=== PATIENT | male | born 1975 | race American Indian/Alaskan Native ===

== ENCOUNTER 2021-03-05 02:48 | Emergency (ER) | payer MEDICAID ==
[2021-03-05 03:35] LABS: Basophils # (Auto) 0.1 K/mm3 (0.0-0.1); Basophils % (Auto) 1.2 % (0.0-1.8); Eosinophils # (Auto) 0.1 K/mm3 (0.0-0.4); Eosinophils % (Auto) 1.4 % (0.0-4.3); Hematocrit 41.4 % (35.5-45.6); Hemoglobin 14.6 gm/dl (11.8-15.2); Lymphocytes # (Auto) 3.4 K/mm3 (1.2-5.4); Lymphocytes % (Auto) 31.3 % (13.4-35.0); Mean Corpuscular HGB Conc 35 % (32-34); Mean Corpuscular Volume 91 fl (84-94); Monocytes # (Auto) 0.8 K/mm3 (0.0-0.8); Monocytes % (Auto) 7.1 % (0.0-7.3); Platelet Count 312 K/mm3 (140-440); Red Blood Count 4.54 M/mm3 (3.65-5.03); Red Cell Distribution Width 14.4 % (13.2-15.2)
--- NOTE | 2021-03-05 03:48 | XRay Report ---
CHEST 1 VIEW 0333 INDICATION / CLINICAL INFORMATION: near syncope COMPARISON: None available. FINDINGS: SUPPORT DEVICES: None HEART / MEDIASTINUM: No significant abnormality. LUNGS / PLEURA: No significant pulmonary or pleural abnormality. No pneumothorax. ADDITIONAL FINDINGS: No significant additional findings. IMPRESSION: No significant acute abnormality Signer Name: Stiven Sood MD Signed: 03/05/2021 3:43 AM Workstation Name: [id number]
[2021-03-05 04:02] LABS: Alanine Aminotransferase 14 units/L (7-56); Albumin 4.4 g/dL (3.9-5); BUN/Creatinine Ratio 15; Blood Urea Nitrogen 15 mg/dL (9-20); Calcium 9.5 mg/dL (8.4-10.2); Hemolysis Index 28
--- NOTE | 2021-03-05 04:56 | Event Note ---
ED Screening Note Date of service: 03/05/21 Time: 04:35 ED Screening Note: Patient is a 45 yo AA male with a h/o HTN, NIDDM, chronic low back pain and chronic heavy tobacco abuse who presented to the ED with c/o acute onset persistent left-sided chest wall, dyspnea, low back pain, tingling and numbnesss of lower extremities bilaterally for the last 2 weeks, worse in the last 2 days. Patient states that chest pain and shortness of breath are worse with any movement making his symptoms worse. Patient denies fall, traumatic injury, fever, chills, abdominal pain, hematuria, heavy lifting, sore throat, headache, syncope, dizziness or seizures. This initial assessment/diagnostic orders/clinical plan/treatment(s) is/are subject to change based on patients health status, clinical progression and re- assessment by fellow clinical providers in the ED. Further treatment and workup at subsequent clinical providers discretion. Patient/guardian urged not to elope from the ED as their condition may be serious if not clinically assessed and managed. Initial orders include: CBC, CMP, UA, troponin, EKG
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
[2021-03-05 11:15] LABS: Free T4 (Free Thyroxine) 0.92 ng/dL (0.76-1.46)
[2021-03-05 13:51] VITALS: BP 141/92
[2021-03-05 15:48] LABS: Bilirubin,Urine NEG (Negative); Blood,Urine NEG (Negative); Color,Urine Yellow (Yellow); Mucus,Urine FEW /HPF; Protein,Urine <15 mg/dL mg/dL (Negative); Urobilinogen,Urine < 2.0 mg/dL (<2.0)
--- NOTE | 2021-03-08 10:13 | Electrocardiograph Report ---
[facility] Test Date: 2021-03-05 Test Time: 12:47:37 Pat Name: MAHAMED ROGEL Department: Room: Gender: M All Purpose Clerk: BRONWYN : 1975 Requested By: ADRI WATTS Order Number: [id number] Reading MD: Shahriar Meier Measurements Intervals [place] Rate: 71 P: 45 [place]: 159 QRS: 61 QRSD: 136 T: 39 QT: 411 QTc: 446 Interpretive Statements Sinus rhythm Right bundle branch block No previous ECG available for comparison Electronically Signed On 03-08-2021 10:13:14 EDT by Shahriar Meier
== END 2021-03-05 13:51 | disposition home or self-care (01) ==
LOC: ED 02:48
DX: M54.9 Dorsalgia, unspecified (principal); R53.83 Other fatigue; G89.29 Other chronic pain; I10 Essential (primary) hypertension; E11.9 Type 2 diabetes mellitus without complications; F17.200 Nicotine dependence, unspecified, uncomplicated; F12.90 Cannabis use, unspecified, uncomplicated; Z79.899 Other long term (current) drug therapy; Z88.0 Allergy status to penicillin; Z88.8 Allergy status to other drugs, medicaments and biological substances; Z86.69 Personal history of other diseases of the nervous system and sense organs; Z98.890 Other specified postprocedural states
CPT/HCPCS: 36415; 71045; 80053; 81001; 84439; 84443; 84484; 85025; 87086; 93005

== ENCOUNTER 2021-03-05 20:28 | Emergency (ER) | payer MEDICAID ==
[2021-03-06 00:15] LABS: Basophils # (Auto) 0.1 K/mm3 (0.0-0.1); Basophils % (Auto) 0.6 % (0.0-1.8); Eosinophils # (Auto) 0.1 K/mm3 (0.0-0.4); Eosinophils % (Auto) 1.2 % (0.0-4.3); Hematocrit 40.9 % (35.5-45.6); Lymphocytes # (Auto) 2.8 K/mm3 (1.2-5.4); Lymphocytes % (Auto) 29.9 % (13.4-35.0); Mean Corpuscular HGB Conc 34 % (32-34); Mean Corpuscular Volume 91 fl (84-94); Monocytes # (Auto) 0.5 K/mm3 (0.0-0.8); Monocytes % (Auto) 5.5 % (0.0-7.3); Platelet Count 320 K/mm3 (140-440); Red Blood Count 4.51 M/mm3 (3.65-5.03)
[2021-03-06 00:33] LABS: BUN/Creatinine Ratio 13; Blood Urea Nitrogen 13 mg/dL (9-20); Calcium 9.3 mg/dL (8.4-10.2); Hemolysis Index 1
[2021-03-06 01:11] LABS: Bilirubin,Urine NEG (Negative); Blood,Urine SM (Negative); Color,Urine Yellow (Yellow); Mucus,Urine FEW /HPF; Protein,Urine <15 mg/dL mg/dL (Negative); Urobilinogen,Urine < 2.0 mg/dL (<2.0)
[2021-03-06 01:18] LABS: Amphetamine Screen,Urine PRESUMPTIVE NEGATIVE; Benzodiazepines Screen,Urine PRESUMPTIVE NEGATIVE; Cannabinoid Screen,Urine PRESUMPTIVE NEGATIVE; Cocaine Screen,Urine PRESUMPTIVE POSITIVE; Methadone Screen,Urine PRESUMPTIVE NEGATIVE; Opiate Screen,Urine PRESUMPTIVE NEGATIVE
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
[2021-03-06 03:54] VITALS: BP 139/92
--- NOTE | 2021-03-06 10:13 | Event Note ---
S: sleeping comfortably O: stable vital signs, A: cocaine intoxication, homicidal ideation P: Patient is medically clear. Labs WNL except +cocaine UDS, awaiting recommendations
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
== END 2021-03-06 12:58 | disposition home or self-care (01) ==
LOC: ED 20:28
DX: F20.9 Schizophrenia, unspecified (principal); I10 Essential (primary) hypertension; E11.9 Type 2 diabetes mellitus without complications; F12.90 Cannabis use, unspecified, uncomplicated; F17.200 Nicotine dependence, unspecified, uncomplicated; Z79.899 Other long term (current) drug therapy; Z98.890 Other specified postprocedural states; Z86.69 Personal history of other diseases of the nervous system and sense organs; Z88.8 Allergy status to other drugs, medicaments and biological substances; Z88.0 Allergy status to penicillin; Z00.8 Encounter for other general examination
CPT/HCPCS: 36415; 80048; 80307; 80320; 81001; 85025; G0480